=== PATIENT | male | born 1950 | race Caucasian/White ===

== ENCOUNTER 2016-10-11 08:09 | Inpatient (IN) | payer OTHER, MEDICAID ==
[~2016-10-11] VITALS: Ht 172.7 cm; Wt 110.2 kg
[2016-10-11] VITALS (24 sets, daily range): BP systolic 104–196; BP diastolic 53–126; PULSE 78–138; RESP 21–34; TEMP 97–100.3; O2SAT 85–99
--- NOTE | 2016-10-11 08:09 | NUR ---
Patient brought in by ALS from [facility] for shortness of breath since last night that has been getting worse. Patient was 81% upon EMS arrival and given nitro x 3 SL in field which helped a little bit per patient. Patient arrived in CPAP, tachypneic, diaphoretic, with accessory muscle use. placed on turpentine distiller, side rails up.
--- NOTE | 2016-10-11 08:09 | NUR ---
Patient to ER bed 2 to gown for evaluation. Side rails up. Report given to FELIPE ROSS.
--- NOTE | 2016-10-11 08:09 | NUR ---
ER at bedside examining patient.
[2016-10-11] MEDS ORDERED: NITROGLYCERIN 250 ML IV ONE ×2 (08:15→08:22)
--- NOTE | 2016-10-11 08:20 | NUR ---
# 20 gauge angiocath placed to L HAND. Use of asceptic technique. Opsite placed over site. Blood return noted. Blood for lab drawn from site. Flushed with 10 cc of normal saline. No evidence of infiltration noted. Patient tolerated well.
[2016-10-11 08:37] LABS: BASOPHILS # (AUTO) 0.3 K/uL (0.0-0.2); BASOPHILS % (AUTO) 1.5 % (0.0-2.0); EOSINOPHILS # (AUTO) 0.1 K/uL (0.0-0.4); EOSINOPHILS % (AUTO) 0.7 % (0.0-4.0); HEMATOCRIT 48.9 % (36-54); HEMOGLOBIN 15.4 g/dL (14.0-18.0); LYMPHOCYTES # (AUTO) 2.2 K/uL (1.0-5.5); LYMPHOCYTES % (AUTO) 10.6 % (20.5-51.5); MEAN CORPUSCULAR HEMOGLOBIN 27 pg (27-31); MEAN CORPUSCULAR HGB CONC 31 % (32-36); MEAN CORPUSCULAR VOLUME 86 fL (79.0-98.0); MONOCYTES # (AUTO) 0.5 K/uL (0.0-1.0); MONOCYTES % (AUTO) 2.4 % (1.7-9.3); NEUTROPHILS # (AUTO) 17.5 K/uL (1.8-7.7); PLATELET COUNT (AUTO) 236 K/uL (130-430); RED BLOOD CELL COUNT(AUTO) 5.65 MIL/uL (4.2-6.2); RED CELL DISTRIBUTION WIDTH 15.1 % (9.0-15.0); WHITE BLOOD COUNT (AUTO) 20.6 K/uL (4.8-10.8)
[2016-10-11 08:49] LABS: PROTHROMBIN TIME 10.6 SECS (9.5-12.5)
[2016-10-11] MEDS ORDERED: NS 250 ML IV ONE (09:00)
[2016-10-11] MEDS ORDERED: PIPERACILLIN/TAZO 3.375 GM in NS 50 ML IV ONE (09:00)
[2016-10-11 09:11] LABS: CALCIUM 8.7 mg/dL (8.4-11.0); CREATININE 0.81 mg/dL (0.55-1.30); POTASSIUM 3.8 mmol/L (3.5-5.1)
--- NOTE | 2016-10-11 09:15 | NUR ---
# 16 FR Lai catheter with use of sterile technique. Immediate return of cc urine noted. Bedside drainage bag placed below level of bladder. Urine sample collected and sent to lab. Pt tolerated procedure .
[2016-10-11 09:16] LABS: ALBUMIN 3.8 g/dL (3.4-4.8); TOTAL BILIRUBIN 0.9 mg/dL (0.0-1.0); TOTAL PROTEIN, SERUM 7.2 g/dL (6.4-8.3)
[2016-10-11] MEDS ORDERED: PIPERACILLIN/TAZOBACTAM 3.375 GM/VIAL (ZOSYN) IV ONE (09:26)
[2016-10-11 09:28] LABS: BILIRUBIN,URINE NEGATIVE (NEGATIVE); BLOOD, URINE 1+ (NEGATIVE); CLARITY/URINE CLEAR (CLEAR); COLOR,URINE YELLOW (YELLOW); GLUCOSE,URINE 1+ (NEGATIVE); KETONES,URINE 1+ (NEGATIVE); LEUKOCYTE ESTERASE ,URINE NEGATIVE (NEGATIVE); NITRITE, URINE NEGATIVE (NEGATIVE); PH,URINE 5.5 (5.0-8.0); PROTEIN URINE 2+ (NEGATIVE); UROBILINOGEN,URINE 0.2 (0.2-1.0)
[2016-10-11] MEDS ORDERED: NA P118E RC (09:37)
[2016-10-11] MEDS ORDERED: ASPI-1063 PO (09:37)
[2016-10-11] MEDS ORDERED: HYDR-1115 PO (09:37)
[2016-10-11] MEDS ORDERED: DULR10 RC (09:37)
[2016-10-11] MEDS ORDERED: DONE10TA44 PO (09:37)
[2016-10-11] MEDS ORDERED: GLU500 PO (09:37)
[2016-10-11] MEDS ORDERED: DOCU-144 PO (09:37)
[2016-10-11] MEDS ORDERED: IPRA0.2S6 INH (09:37)
[2016-10-11] MEDS ORDERED: MAGN400T10 PO (09:37)
[2016-10-11] MEDS ORDERED: GLIP5TAB76 PO (09:37)
[2016-10-11] MEDS ORDERED: CLOP75TA2 PO (09:37)
[2016-10-11] MEDS ORDERED: METO25TA6 PO (09:37)
[2016-10-11] MEDS ORDERED: LIP10 PO (09:37)
[2016-10-11] MEDS ORDERED: LISI-600 PO (09:37)
[2016-10-11 09:40] LABS: BACTERIA,URINE FEW /HPF (None Seen); MUCUS,URINE None Seen /LPF (None Seen)
[2016-10-11] MEDS ORDERED: MULT PO (09:42)
[2016-10-11] MEDS ORDERED: LEVA1.25 NEB (09:42)
[2016-10-11] MEDS ORDERED: PRO20 PO (09:42)
[2016-10-11] MEDS ORDERED: PRO40 PO (09:42)
[2016-10-11] MEDS ORDERED: MAGN400O4 PO (09:42)
[2016-10-11] MEDS ORDERED: ASCO500T20 PO (09:42)
[2016-10-11] MEDS ORDERED: HYDR-1189 PO (09:42)
[2016-10-11] MEDS ORDERED: ACET325T53 PO (09:42)
[2016-10-11] MEDS ORDERED: TUM500 PO (09:42)
--- NOTE | 2016-10-11 09:42 | NUR ---
Medication reconciliation completed with information provided by [facility]. Any prior medication reconciliation on file was reviewed and corrected.
--- NOTE | 2016-10-11 10:00 | NUR ---
RN NOTE: ADMISSION Patient transferred from [facility] ED via gurney accompanied by ED nurse and RT staff.Patient awake and alert x 3, easily irritable upon approach,follows simple commands.He has left side weakness to upper and lower extremities.Patient breathing labored, bipap at 60%, crackles through out noted.Patient presents slight non-pitting edema to bilateral lower extremities.Patient draining clear, yellow urine to Lai.Patient oriented to unit and staff,verified patient belongings and verbally consented hospital paperwork.Bed locked,in lowest position,call light within easy reach,upper side rails x 2 up.Pt continues to be monitored closely.
--- NOTE | 2016-10-11 10:10 | NUR ---
Patient will be admitted to care of DR AU. Admitted to unit. Will go to room . Belongings list completed. Summary report printed. Report given to .
[2016-10-11 10:13] LABS: ABG TOTAL HEMOGLOBIN 15.6 G/dL (12.0-18.0); BLOOD GAS BASE EXCESS -0.6 mmol/L (-3.0-3.0); BLOOD GAS COHb% 0.7 % (0.5-1.5); BLOOD GAS HHB 2.9 % (0.0-6.0); BLOOD GAS PH 7.407 (7.350-7.450); BLOOD O2Hb% 96.3 % (94.0-97.0)
[2016-10-11] MEDS ORDERED: IPRATROPIUM BROM 0.5 MG/2.5 ML VIAL.NEB (ATROVENT) INH PRN (10:15)
[2016-10-11] MEDS ORDERED: ALBUTEROL SULFATE 0.083% 2.5 MG/3 ML VIAL.NEB INH PRN (10:15)
[2016-10-11] MEDS ORDERED: methylPREDNISolone SOD SUCC/PF 62.5 MG/ML VIAL IVP ONE (10:15)
--- NOTE | 2016-10-11 10:30 | NUR ---
MD COMMUNICATION: Dr. AU Received new orders from ,updated on patient condition.Orders carried out.Pt continues to be monitored closely.
[2016-10-11] MEDS ORDERED: ACETAMINOPHEN 325 MG TABLET PO PRN (11:00)
[2016-10-11] MEDS ORDERED: BISACODYL 10 MG/SUPPOSITORY RC PRN (11:00)
[2016-10-11] MEDS ORDERED: HYDROcodone/ACETAMIN 5-325 MG TAB (NORCO/ VICODIN) PO PRN (11:00)
--- NOTE | 2016-10-11 11:00 | NUR ---
COMMUNICATION: Dr. ANGELY Marina communicated D/C IVF per patient not hemodynamically stable at this time.Continue to follow plan of care.
[2016-10-11] MEDS ORDERED: NACL 0.9% 1,000 ML IV SCH (11:30)
[2016-10-11 11:38] LABS: NEUTROPHILS % (AUTO) 84.8 % (40.0-70.0)
[2016-10-11] MEDS ORDERED: FUROSEMIDE 20 MG/2 ML VIAL IVP ONE ×2 (12:00→17:00)
--- NOTE | 2016-10-11 12:00 | NUR ---
PT CARE: Bm x 1, cleaned.CHG bath, oral care provided.Linen changed.Patient turned,repositioned.Patient currently tolerating vent settings, o2sat 96%.Will continue to monitor patient closely.
--- NOTE | 2016-10-11 12:45 | NUR ---
MD VISIT: DR. AU PATIENT WAS SEEN AND EXAMINED BY DR. AU, WITH ORDERS CARRIED OUT. BIPAP OFF AT THIS TIME, PT PLACED ON 3L O2 VIA OXYMIZER, HEAD OF THE BED UP FOR COMFORT. ICE CHIPS AND SIPS OF WATER GIVEN. REQUEST FOR SWALLOW EVAL. DONE.
--- NOTE | 2016-10-11 12:55 | NUR ---
Jasmyne from Speech Therapy called for swallow evaluation.
[2016-10-11] MEDS ORDERED: LORazepam 2 MG/ML VIAL IVP ONE (13:00)
--- NOTE | 2016-10-11 13:07 | NUR ---
Consult for Dr. Lucia lester. spoke to Belia from exchange.
[2016-10-11] MEDS: PANTOPRAZOLE SODIUM 40 MG TAB PO SCH (13:08)
[2016-10-11] MEDS: hydrALAZINE HCL 25 MG TABLET PO SCH ×3 (13:08→20:43)
[2016-10-11] MEDS ORDERED: PANTOPRAZOLE SODIUM 40 MG TAB ONE (13:13)
[2016-10-11] MEDS: IPRATROPIUM BROM 0.5 MG/2.5 ML VIAL.NEB (ATROVENT) INH SCH ×2 (13:14→20:08)
[2016-10-11] MEDS: ALBUTEROL SULFATE 0.083% 2.5 MG/3 ML VIAL.NEB INH SCH ×2 (13:14→20:08)
--- NOTE | 2016-10-11 13:30 | NUR ---
RT NOTES Despite HHN tx, pt's respiratory effort still appears labored, pt is diaphoretic and audible wheezing continues as well, Dr Rea made aware, including current BIPAP settings. Pt's breathing effort appears more "relaxed and even" on BIPAP. Will cont to monitor pt.
--- NOTE | 2016-10-11 13:35 | NUR ---
RT NOTES Dr Rea was made aware of duplicate ABG order was cancelled this a.m. FIO2 titrated to 50% per Dr Rea's order to keep sat. >92%
--- NOTE | 2016-10-11 14:00 | NUR ---
MD ROUNDING: DR. FAWAD MCLEOD at bedside.Updated on patient condition.New orders carried out.Pt continues to be monitored closely.
--- NOTE | 2016-10-11 14:21 | NUR ---
S.T. SWALLOW EVAL COMPLETED. PT WAS CHANGED FROM BIPAP TO OXYMIZER BY NRSG STAFF. 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 TRIALS. LABORED BREATHING W/ SWALLOWING. PT IS AT RISK FOR ASPIRATION. REC: NPO - ALTERNATIVE METHOD FOR FEEDING. VIDEO SWALLOW TO R/O ASPIRATION. CONSULTED W/ NURSING. CONCUR BEST TO DO VIDEO SWALLOW WHEN PT'S RESPIRATORY STATUS IMPROVES. NURSES TOD AND WILLIAM NOTIFIED. G8996 CM G8997 CM G8998 CM NOMS LEVEL 2
[2016-10-11] MEDS: methylPREDNISolone SOD SUCC/PF 62.5 MG/ML VIAL IVP SCH ×2 (14:42→22:09)
[2016-10-11] MEDS: PIPERACILLIN/TAZO 3.375/DEX-IS 50 ML IV SCH ×2 (15:01→17:29)
--- NOTE | 2016-10-11 16:20 | NUR ---
MD ROUNDING: Dr. Clif MCLEOD at bedside, updated on patient condition.Pt continues to be monitored closely.
[2016-10-11] MEDS: INSULIN ASPART 100 UNITS/ML, 10 ML VIAL (NovoLOG) SUBCUT PRN ×2 (17:43→20:42)
--- NOTE | 2016-10-11 18:00 | NUR ---
PT UPDATE: Pt observed resting in bed, eye closed, regular positive chest rise and fall noted.Bed locked, in lowest position,HOB elevated,upper rails x 2 up, SCDs in place,call light within easy reach.Pt continues to be monitored closely.
[2016-10-11] MEDS: AZITHROMYCIN 500 MG in NS 250 ML IV SCH (18:28)
--- NOTE | 2016-10-11 19:20 | NUR ---
CLOSING NOTE: Plan of care and report endorsed to VANDANA Reece via SBAR method.
--- NOTE | 2016-10-11 19:20 | NUR ---
Beginning of shift assessment Pt lying in bed resting w eyes closed, easily arousable to verbal/tactile stimulation. Able to make needs known, able to follow commands. Pt unable to move L side due to previous CVA. real estate professional show SR with 1 degree AVB. Pt on Bipap, tolerating well. Respirations even and unlabored, SPO2 >92%. Free from s/s of respiratory distress. 20 g to L hand, SL. IV patent, no s/s of infiltration or infection. Lai catheter draining dark yellow urine to gravity, placed below bladder level. Call light within reach, bed in low position for safety, will continue to monitor.
[2016-10-11] MEDS: METOPROLOL TARTRATE 25 MG TABLET PO SCH (20:43)
[2016-10-11] MEDS: DONEPEZIL HCL 5 MG TABLET (ARICEPT) PO SCH (20:43)
[2016-10-11] MEDS: DOCUSATE SODIUM 100 MG CAPSULE PO SCH (20:44)
[2016-10-11] MEDS: ATORVASTATIN 10 MG TABLET PO SCH (20:44)
--- NOTE | 2016-10-11 20:57 | NUR ---
PO medications PO medications held due to pt NPO (aspiration risk), which include BP meds. BP currently decreased, 98/57. HR 78. Will continue to monitor. Addendum: 10/12/16 at 0310 by Ce Mane RN Pt current diet ordered is Clear liquids; however, ST recommends NPO due to aspiration risk. When pt asked if he could tolerate swallowing medications, pt reports throat is sore and that he will not be able to swallow pills. Refusing to have pills crushed when offered.
--- NOTE | 2016-10-11 22:30 | NUR ---
IV infiltrated IV to L hand infiltrated. IV removed, catheter intact. No active bleeding noted. 20 gauge angiocath placed to R AC. Use of asceptic technique. Opsite placed over site. Blood return noted. Flushed with 10 cc of normal saline. No evidence of infiltration noted. Patient tolerated well.
[2016-10-12] VITALS (26 sets, daily range): BP systolic 112–190; BP diastolic 61–115; PULSE 72–104; RESP 16–25; TEMP 98.1–98.8; O2SAT 91–98; Ht 172.7 cm; Wt 110.2 kg
[2016-10-12] MEDS: PIPERACILLIN/TAZO 3.375/DEX-IS 50 ML IV SCH ×5 (00:06→23:45)
--- NOTE | 2016-10-12 03:03 | NUR ---
Rounds No acute changes in condition noted at this time. Pt tolerating Bipap settings well, respirations even and unlabored. SPO2 >92%. Will continue to monitor.
--- NOTE | 2016-10-12 05:15 | NUR ---
BM Pt had x1 soft, light brown, medium stool. Perineal care and linen change provided. Pt tolerated well, no c/o pain. No s/s of respiratory distress. Will continue to monitor.
--- NOTE | 2016-10-12 05:27 | NUR ---
RT bedside Pt requesting to take Bipap off. Stating it is causing discomfort and "wants a break." RT bedside switching from Bipap to oxymizer @ 4 lm. Will continue to monitor pt tolerance.
--- NOTE | 2016-10-12 05:54 | NUR ---
Pt had another med stool x1 Addendum: 10/12/16 at 0556 by Ce Mane RN Perineal care and linen change provided. Pt tolerated well. Pt continues on oxymizer and tolerating well. SPO2 >92%. Respirations even and unlabored. Will continue to monitor
[2016-10-12] MEDS: methylPREDNISolone SOD SUCC/PF 62.5 MG/ML VIAL IVP SCH ×3 (06:22→21:51)
[2016-10-12 06:54] LABS: ALBUMIN 3.1 g/dL (3.4-4.8); CALCIUM 8.5 mg/dL (8.4-11.0); CREATININE 0.93 mg/dL (0.55-1.30); POTASSIUM 3.4 mmol/L (3.5-5.1); TOTAL BILIRUBIN 0.5 mg/dL (0.0-1.0); TOTAL PROTEIN, SERUM 6.5 g/dL (6.4-8.3)
--- NOTE | 2016-10-12 06:56 | NUR ---
Blood glucose/Dr Roman paged Pt blood glucose 159. Dr Roman pagegreer for clarification of sliding scale. No orders in place for insulin coverage for blood sugar of 151-159. Will carry out any new orders.
[2016-10-12 07:01] LABS: BASOPHILS % (AUTO) 0.2 % (0.0-2.0); HEMATOCRIT 42.7 % (36-54); HEMOGLOBIN 13.8 g/dL (14.0-18.0); LYMPHOCYTES # (AUTO) 1.1 K/uL (1.0-5.5); LYMPHOCYTES % (AUTO) 8.7 % (20.5-51.5); MEAN CORPUSCULAR HEMOGLOBIN 28 pg (27-31); MEAN CORPUSCULAR HGB CONC 32 % (32-36); MEAN CORPUSCULAR VOLUME 86 fL (79.0-98.0); NEUTROPHILS # (AUTO) 10.6 K/uL (1.8-7.7); NEUTROPHILS % (AUTO) 83.1 % (40.0-70.0); PLATELET COUNT (AUTO) 205 K/uL (130-430); RED BLOOD CELL COUNT(AUTO) 4.95 MIL/uL (4.2-6.2); RED CELL DISTRIBUTION WIDTH 15.1 % (9.0-15.0); WHITE BLOOD COUNT (AUTO) 12.7 K/uL (4.8-10.8)
--- NOTE | 2016-10-12 07:02 | NUR ---
Dr Roman Received call back from Dr Roman. Updated MD on pt blood sugar and current sliding scale order. reports to hold insulin coverage until blood glucose is 160 and above. MD also updated on ST jama MD reports to keep pt NPO at this time.
--- NOTE | 2016-10-12 07:09 | NUR ---
End of shift report Endorsed care and pt report to VANDANA Torres.
[2016-10-12] MEDS: ALBUTEROL SULFATE 0.083% 2.5 MG/3 ML VIAL.NEB INH SCH ×3 (07:27→20:36)
[2016-10-12] MEDS: IPRATROPIUM BROM 0.5 MG/2.5 ML VIAL.NEB (ATROVENT) INH SCH ×3 (07:27→20:36)
--- NOTE | 2016-10-12 07:29 | NUR ---
Nutrition Update Nelson Scale 15 noted. Pt admitted for acute respiratory failure/pneumonia. Diet: clear liquid, no red BMI: 36.9 kg/m2 RD to follow per nutrition care standards.
--- NOTE | 2016-10-12 07:30 | NUR ---
RECEIVED PT ALERT AND COOPERATIVE. TELLING JOKES. NO DISTRESS ON OXIMISER AT 4L. SATS 94%. LUNGS WITH WHEEZING BILATERALLY. BREATHING TREATMENT IN PROGRESS. HOB UP. SR ON MONITOR WITH PERIODS OF FIRST DEGREE BLOCK. NAJERA CATH WITH ADRIANO URINE IN BAG. WILL MONITOR OUTPUT. 20G IV TO RIGHT AC INFUSING FLUIDS AT KVO. 22G STARTED TO RIGHT FOREARM AND SALINE LOCKED. SCD'S IN USE. PT REMAINS NPO PENDING SWALLOW EVAL.
[2016-10-12 07:52] LABS: ABG TOTAL HEMOGLOBIN 15.1 G/dL (12.0-18.0); BLOOD GAS BASE EXCESS 2.8 mmol/L (-3.0-3.0); BLOOD GAS COHb% 0.3 % (0.5-1.5); BLOOD GAS HHB 4.8 % (0.0-6.0); BLOOD GAS PH 7.421 (7.350-7.450); BLOOD O2Hb% 94.7 % (94.0-97.0)
[2016-10-12] MEDS ORDERED: KCL 20 mEq in 100 mL (PREMIX) 100 ML IV ONE (08:45)
[2016-10-12] MEDS: FUROSEMIDE 20 MG/2 ML VIAL IVP SCH ×2 (09:00→09:16)
[2016-10-12] MEDS: PANTOPRAZOLE SODIUM 40 MG TAB PO SCH (09:00)
[2016-10-12] MEDS: CLOPIDOGREL BISULFATE 75 MG TABLET PO SCH (09:00)
[2016-10-12] MEDS: hydrALAZINE HCL 25 MG TABLET PO SCH ×4 (09:00→21:00)
[2016-10-12] MEDS: FLUoxetine HCL 20 MG CAPSULE (PROzac) PO SCH (09:00)
[2016-10-12] MEDS: DOCUSATE SODIUM 100 MG CAPSULE PO SCH ×2 (09:00→21:00)
[2016-10-12] MEDS: LACTOBACILLUS RHAMNOSUS GG 1 CAP CAPSULE PO SCH ×2 (09:00→20:18)
[2016-10-12] MEDS: METOPROLOL TARTRATE 25 MG TABLET PO SCH ×2 (09:00→21:00)
--- NOTE | 2016-10-12 09:36 | NUR ---
CHG BATH DONE. PT TALKATIVE AND DOING WELL ON 02 OXIMISER. 02 SATS 93%. WILL CONTINUE TO MONITOR ON OXIMISER.
[2016-10-12] MEDS: INSULIN ASPART 100 UNITS/ML, 10 ML VIAL (NovoLOG) SUBCUT PRN ×3 (11:51→20:42)
--- NOTE | 2016-10-12 13:10 | NUR ---
PT HAD A LARGE SOFT BROWN BM. DOUG CARE DONE. REPOSITIONED IN BED WITH PILLOW SUPPORT.
[2016-10-12] MEDS: MORPHINE 2 MG/ML INJ. SYRINGE IVP PRN ×2 (13:27→20:18)
--- NOTE | 2016-10-12 13:27 | NUR ---
PT MEDICATED WITH MORPHINE FOR PAIN.
--- NOTE | 2016-10-12 13:41 | NUR ---
PAGED DR AU FOR ELEVATED BP. DR KUHN CALLED BACK AND STATED SHE WILL BE HERE IN A FEW MINUTES.
--- NOTE | 2016-10-12 13:55 | NUR ---
DR AU IN TO SEE PT. ORDERS LEFT.
[2016-10-12] MEDS ORDERED: ACETAMINOPHEN 650 MG SUPP.RECT RC PRN (14:00)
[2016-10-12] MEDS: ENALAPRILAT DIHYDRATE 1.25 MG/ML VIAL IVP PRN ×2 (14:36→19:07)
--- NOTE | 2016-10-12 15:45 | NUR ---
SWALLOW EVAL DONE AT BEDSIDE. PT PASSED AND CAN HAVE THINK LIQUIDS TO DRINK AND FINE CHOPPED BLAND DIET. ORDER ENTERED.
[2016-10-12] MEDS: AZITHROMYCIN 500 MG in NS 250 ML IV SCH (16:30)
--- NOTE | 2016-10-12 19:05 | NUR ---
BP ELEVATED AFTER PT ATE DINNER. MEDICATED WITH PO BP MEDS./ LOPRESSOR HELD DUE TO SIDE EFFECT OF AV BLOCK AND PT HAS A FIRST DEGREE AV BLOCK ALL DAY. PT TOLERATED DIET WITHOUT PROBLEMS. TAKING LIQUIDS AND C./O BEING THIRSTY. REPORT GIVEN TO ONCOMING SHIFT.
[2016-10-12] MEDS: ASPIRIN 81 MG TABLET(ECOTRIN) PO SCH (19:36)
[2016-10-12] MEDS: LISINOPRIL 20 MG TABLET PO SCH (19:38)
--- NOTE | 2016-10-12 20:00 | NUR ---
PM ASSESSMENT PT IN BED WATCHING TV. PT ALERT AND ORIENTED TO PERSON PLACE AND EVENT. PT CALM AND COOPERATIVE. NO SIGNS OF DISTRESS AT THIS TIME. SINUS RHYTHM ON DOCUMENT IMPROVEMENT SPECIALIST. PT ON OXYMIZER 4L. O2 SAT 94%. BREATHING NORMAL AND UNLABORED. PERIPHERAL IV 20G TO RIGHT AC SALINE LOCK DRESSING CLEAN DRY AND INTACT. PERIPHERAL IV 22G TO RIGHT HAND SALINE LOCK DRESSING CLEAN DRY AND INTACT. BOTH SITES HAVE NO SIGNS OF INFECTION OR INFILTRATION. NAJERA CATHETER IN PLACE INTACT. CONTACT ISOLATION MAINTAINED. CALL LIGHT WITHIN REACH. BED AT LOWEST POSITION. CONTINUE TO MONITOR.
[2016-10-12] MEDS: MUPIROCIN NASAL 2% OINT. 1 GM NS SCH ×2 (20:15→21:00)
[2016-10-12] MEDS: ATORVASTATIN 10 MG TABLET PO SCH (20:18)
[2016-10-12] MEDS: DONEPEZIL HCL 5 MG TABLET (ARICEPT) PO SCH (20:18)
--- NOTE | 2016-10-12 21:00 | NUR ---
HELD APRESOLINE DUE TO BORIS, RN ALREADY ADMINISTERED ONE DOSE @ 1930. HELD LOPRESSOR DUE TO PT HAS 1ST DEGREE AV BLOCK. DR AU AWARE
--- NOTE | 2016-10-12 21:25 | NUR ---
HIGH BLOOD PRESSURE PT'S BP 182/94. NOTIFIED DR AU OF PT'S HIGH BLOOD PRESSURE. NEW ORDERS RECEIVED.
[2016-10-12] MEDS ORDERED: LISINOPRIL 20 MG TABLET PO ONE (21:30)
[2016-10-12] MEDS ORDERED: cloNIDine HCL 0.1 MG TABLET PO PRN (21:30)
[2016-10-12 23:34] LABS: BILIRUBIN,URINE NEGATIVE (NEGATIVE); BLOOD, URINE 3+ (NEGATIVE); CLARITY/URINE SL CLOUDY (CLEAR); COLOR,URINE YELLOW (YELLOW); GLUCOSE,URINE 2+ (NEGATIVE); KETONES,URINE NEGATIVE (NEGATIVE); LEUKOCYTE ESTERASE ,URINE NEGATIVE (NEGATIVE); NITRITE, URINE NEGATIVE (NEGATIVE); PH,URINE 5.5 (5.0-8.0); PROTEIN URINE 2+ (NEGATIVE); UROBILINOGEN,URINE 0.2 (0.2-1.0)
[2016-10-12 23:48] LABS: BACTERIA,URINE MODERATE /HPF (None Seen); RBC,URINE >100 /HPF (0-3)
[2016-10-12 23:49] LABS: MUCUS,URINE 1+ /LPF (None Seen); URIC ACID CRYSTALS,URINE 0-10 /HPF (None Seen)
[2016-10-13] VITALS (16 sets, daily range): BP systolic 116–158; BP diastolic 58–94; PULSE 68–96; RESP 15–25; TEMP 97.6–99; O2SAT 66–98
[2016-10-13] MEDS: IPRATROPIUM BROM 0.5 MG/2.5 ML VIAL.NEB (ATROVENT) INH SCH ×4 (02:11→21:04)
[2016-10-13] MEDS: ALBUTEROL SULFATE 0.083% 2.5 MG/3 ML VIAL.NEB INH SCH ×4 (02:11→21:03)
[2016-10-13] MEDS: PIPERACILLIN/TAZO 3.375/DEX-IS 50 ML IV SCH ×3 (06:01→17:54)
[2016-10-13] MEDS: methylPREDNISolone SOD SUCC/PF 62.5 MG/ML VIAL IVP SCH ×3 (06:01→22:34)
[2016-10-13] MEDS: MORPHINE 2 MG/ML INJ. SYRINGE IVP PRN ×4 (06:02→22:34)
[2016-10-13] MEDS: INSULIN ASPART 100 UNITS/ML, 10 ML VIAL (NovoLOG) SUBCUT PRN ×4 (06:12→22:37)
[2016-10-13 07:20] LABS: BASOPHILS % (AUTO) 0.1 % (0.0-2.0); EOSINOPHILS % (AUTO) 0.1 % (0.0-4.0); HEMATOCRIT 41.5 % (36-54); HEMOGLOBIN 13.9 g/dL (14.0-18.0); LYMPHOCYTES # (AUTO) 1.1 K/uL (1.0-5.5); LYMPHOCYTES % (AUTO) 9.6 % (20.5-51.5); MEAN CORPUSCULAR HEMOGLOBIN 29 pg (27-31); MEAN CORPUSCULAR HGB CONC 33 % (32-36); MEAN CORPUSCULAR VOLUME 87 fL (79.0-98.0); MONOCYTES # (AUTO) 0.4 K/uL (0.0-1.0); MONOCYTES % (AUTO) 3.2 % (1.7-9.3); NEUTROPHILS # (AUTO) 10.2 K/uL (1.8-7.7); PLATELET COUNT (AUTO) 202 K/uL (130-430); RED BLOOD CELL COUNT(AUTO) 4.79 MIL/uL (4.2-6.2); RED CELL DISTRIBUTION WIDTH 15.3 % (9.0-15.0); WHITE BLOOD COUNT (AUTO) 11.7 K/uL (4.8-10.8)
[2016-10-13 07:25] LABS: ALBUMIN 3.1 g/dL (3.4-4.8); CALCIUM 8.6 mg/dL (8.4-11.0); CREATININE 0.98 mg/dL (0.55-1.30); POTASSIUM 3.9 mmol/L (3.5-5.1); TOTAL BILIRUBIN 0.5 mg/dL (0.0-1.0); TOTAL PROTEIN, SERUM 6.5 g/dL (6.4-8.3)
--- NOTE | 2016-10-13 07:27 | NUR ---
GAVE REPORT TO ONCOMING NURSE
--- NOTE | 2016-10-13 07:30 | NUR ---
BEGINNING OF SHIFT ASSESSMENT: Received patient awake and alert x 3,sitting upright in bed watching TV,able to make his needs known and cooperative.Pt tolerating oxymizer 4L, crackles and wheezing noted.Patient has IV to right AC # 20 and IV to right hand #22,all ports flushable with blood return,ports patent,dressing dry,clean,intact,no signs of redness and infection noted.Yellow,clear urine draining to gravity,turner cath in place.Contact iso precautions in place.Bed locked,in lowest position,call light within easy reach,upper side rails x 2 up.Pt continues to be closely monitored.
[2016-10-13] MEDS: FLUoxetine HCL 20 MG CAPSULE (PROzac) PO SCH (08:41)
[2016-10-13] MEDS: ASPIRIN 81 MG TABLET(ECOTRIN) PO SCH (08:41)
[2016-10-13] MEDS: PANTOPRAZOLE SODIUM 40 MG TAB PO SCH (08:41)
[2016-10-13] MEDS: DOCUSATE SODIUM 100 MG CAPSULE PO SCH ×2 (08:41→22:32)
[2016-10-13] MEDS: CLOPIDOGREL BISULFATE 75 MG TABLET PO SCH (08:42)
[2016-10-13] MEDS: LISINOPRIL 20 MG TABLET PO SCH (08:42)
[2016-10-13] MEDS: LACTOBACILLUS RHAMNOSUS GG 1 CAP CAPSULE PO SCH ×2 (08:42→22:32)
[2016-10-13] MEDS: hydrALAZINE HCL 25 MG TABLET PO SCH ×4 (08:43→22:33)
[2016-10-13] MEDS: METOPROLOL TARTRATE 25 MG TABLET PO SCH ×2 (09:19→22:32)
--- NOTE | 2016-10-13 10:00 | NUR ---
PT CARE: Patient turned, repositioned, oral care, and CHG bath provided.Patient continues to be observed sitting upright in bed watching TV.Pt tolerating oxymizer at 4L.Pt continues to be monitored closely.
--- NOTE | 2016-10-13 12:00 | NUR ---
GLUCOSE: Blood sugar 291 mg/dl, 6 units of novalog given per sliding scale protocol.Patient provided emotional support and educated on treatment modalities and discharge goals.Patient verbalized understanding.Client assisted with lunch.Bed locked,in lowest position, call light within easy reach, HOB elevated, upper side rails x 2 up.Pt continues to be monitored closely.
--- NOTE | 2016-10-13 13:40 | NUR ---
MD ROUNDING: Dr. ANGELY MCLEOD at bedside, updated on pt condition.Received new orders.Patient continues to be monitored closely.
--- NOTE | 2016-10-13 14:00 | NUR ---
TURNER DISCONTINUED: Patient awake, provide pt education on removal of turner.Turner balloon deflated, aspirated 10cc of fluid from turner balloon.Pt tolerated TURNER DC.Informed patient to use urinal and call light regarding needs and concerns.Patient verbalized understanding.
--- NOTE | 2016-10-13 14:30 | NUR ---
TRANSFER OF CARE: MST Report and plan of care given to VANDANA Meneses via SBAR method.Pt sitting upright in bed watching TV, no signs of distress, tolerating oxymizer at 4L, o2sat 98%.Bed locked,in lowest position,call light within easy reach, HOB elevated, upper side rails x 2 up.
--- NOTE | 2016-10-13 14:40 | NUR ---
PT TRANSFERRED: [facility] 112 A Patient transferred via bed, on portable tele monitor, 1st degree HB on monitor, O2sat 98%, no signs of distress, to room 112-A. Pt received by VANDANA Graf.Report given at bedside.Endorsed all care to VANDANA Graf.
--- NOTE | 2016-10-13 14:45 | NUR ---
RN INITIAL NOTE PT TRANSFERRED FROM ICU, REPORT RECEIVED BY VANDANA THOMAS. PT IN GOOD SPIRITS AND VITAL SIGNS WITHIN NORMAL RANGE. SPO2 IS STEADY AT 93% ON 4L OXIMIZER. . CONTACT PRECAUTION INITIATED DUE TO POSITIVE MRSA OF THE NARES. BED IN LOWEST POSITION, BED ALARM ARMS, AND CALL LIGHT WITHIN REACH. PT FRIEND, MICHELINE, IS AT BEDSIDE
--- NOTE | 2016-10-13 16:12 | NUR ---
RN ROUNDS PT IS SITTING UP IN BED AND IS COMPLAINING OF PAIN 9/10, BUT HE IS NOT DUE FOR MORPHINE FOR ANOTHER HOUR. REPOSITIONED PT FOR COMFORT.
[2016-10-13] MEDS: AZITHROMYCIN 500 MG in NS 250 ML IV SCH (18:25)
--- NOTE | 2016-10-13 19:00 | NUR ---
CLOSING ROUNDS PT SITTING UP IN BED. I ASKED HIM ABOUT HIS RIGHT HAND TREMBLE, WHICH WASN'T PRESENT UPON ADMISSION, AND HE SAID "IT HAS DONE THAT SINCE MY STROKE, AND IT GETS WORSE AT NIGHT." BED IN LOWEST POSITION AND CALL LIGHT WITHIN REACH
--- NOTE | 2016-10-13 21:35 | NUR ---
Patient awake alert HOB elevated on OXIMIZER 4 LPM chest movement shallow also symmetrical comfort measures implemented & helpful / .
[2016-10-13] MEDS: MUPIROCIN 2% TOPICAL OINTMENT 22 GM TP SCH (22:31)
[2016-10-13] MEDS: ATORVASTATIN 10 MG TABLET PO SCH (22:32)
[2016-10-13] MEDS: DONEPEZIL HCL 5 MG TABLET (ARICEPT) PO SCH (22:33)
[2016-10-14] VITALS (7 sets, daily range): BP systolic 124–158; BP diastolic 68–101; PULSE 61–81; RESP 17–24; TEMP 96.3–98.9; O2SAT 92–95
[2016-10-14] MEDS: PIPERACILLIN/TAZO 3.375/DEX-IS 50 ML IV SCH ×5 (00:34→23:42)
--- NOTE | 2016-10-14 00:43 | NUR ---
MORPHINE SULFATE 1 MG IVP GIVEN FOR GENERAL pain 02/04 & helpful position change tolerated .
--- NOTE | 2016-10-14 00:46 | NUR ---
ZOSYN 3.375 GM IVPB administer as ordered no adverse reaction noted / .
--- NOTE | 2016-10-14 00:48 | NUR ---
Reposition & Turning patient on schedule pillows used for off loading left sided weakness is noted / .
--- NOTE | 2016-10-14 01:26 | NUR ---
Hourly Rounding HOB elevated patient awake on 02 oximizer 4 lpm call dick with patient / .
--- NOTE | 2016-10-14 04:29 | NUR ---
Patient Refusing Bi pap machine with RT & put back on OXIMIZER @ 4 LPM Respirations regular and unlabored skin dry warm / .
[2016-10-14] MEDS: ALBUTEROL SULFATE 0.083% 2.5 MG/3 ML VIAL.NEB INH SCH ×4 (05:16→19:54)
[2016-10-14] MEDS: IPRATROPIUM BROM 0.5 MG/2.5 ML VIAL.NEB (ATROVENT) INH SCH ×4 (05:16→19:54)
[2016-10-14] MEDS: methylPREDNISolone SOD SUCC/PF 62.5 MG/ML VIAL IVP SCH ×3 (06:42→21:42)
[2016-10-14] MEDS: INSULIN ASPART 100 UNITS/ML, 10 ML VIAL (NovoLOG) SUBCUT PRN ×4 (06:44→21:59)
--- NOTE | 2016-10-14 06:55 | NUR ---
Patient did Refuse Labs this AM awake alert / .
--- NOTE | 2016-10-14 06:56 | NUR ---
BSG @ 286 mg / dl , 6 units of Novolog insulin sub q. administer as ordered , ORANGE JUICE PO GIVEN & tolerated / .
--- NOTE | 2016-10-14 07:30 | NUR ---
RN OPENING NOTE PT IS AWAKE AND RESTING IN BED AND STATED HE IS COMFORTABLE ASIDE FROM BEING WARM, SO I PULLED HIS BLANKET DOWN. PT A/O X4. BED IN LOWEST POSITION AND BED ALARM SET. CALL LIGHT WITHIN REACH
--- NOTE | 2016-10-14 09:00 | NUR ---
RN ROUNDS PT RESTING IN BED AND STATED HE IS COMFORTABLE
--- NOTE | 2016-10-14 09:28 | NUR ---
Pt agreed to have Labs drawn at this time.
[2016-10-14] MEDS: DOCUSATE SODIUM 100 MG CAPSULE PO SCH ×2 (09:43→21:48)
[2016-10-14 09:46] LABS: BASOPHILS # (AUTO) 0.1 K/uL (0.0-0.2); HEMATOCRIT 43.8 % (36-54); HEMOGLOBIN 14.4 g/dL (14.0-18.0); LYMPHOCYTES # (AUTO) 1.3 K/uL (1.0-5.5); LYMPHOCYTES % (AUTO) 10.9 % (20.5-51.5); MEAN CORPUSCULAR HEMOGLOBIN 28 pg (27-31); MEAN CORPUSCULAR HGB CONC 33 % (32-36); MEAN CORPUSCULAR VOLUME 86 fL (79.0-98.0); MONOCYTES # (AUTO) 0.4 K/uL (0.0-1.0); MONOCYTES % (AUTO) 3.5 % (1.7-9.3); NEUTROPHILS # (AUTO) 10.1 K/uL (1.8-7.7); NEUTROPHILS % (AUTO) 84.6 % (40.0-70.0); PLATELET COUNT (AUTO) 216 K/uL (130-430); RED CELL DISTRIBUTION WIDTH 15.1 % (9.0-15.0); WHITE BLOOD COUNT (AUTO) 11.9 K/uL (4.8-10.8)
[2016-10-14] MEDS: hydrALAZINE HCL 25 MG TABLET PO SCH ×4 (09:46→21:47)
[2016-10-14] MEDS: LACTOBACILLUS RHAMNOSUS GG 1 CAP CAPSULE PO SCH ×2 (09:47→21:42)
[2016-10-14] MEDS: FLUoxetine HCL 20 MG CAPSULE (PROzac) PO SCH (09:47)
[2016-10-14] MEDS: CLOPIDOGREL BISULFATE 75 MG TABLET PO SCH (09:47)
[2016-10-14] MEDS: METOPROLOL TARTRATE 25 MG TABLET PO SCH ×2 (09:48→21:48)
[2016-10-14] MEDS: PANTOPRAZOLE SODIUM 40 MG TAB PO SCH (09:48)
[2016-10-14] MEDS: ASPIRIN 81 MG TABLET(ECOTRIN) PO SCH (09:48)
[2016-10-14 09:49] LABS: CALCIUM 8.8 mg/dL (8.4-11.0); CREATININE 0.93 mg/dL (0.55-1.30); POTASSIUM 4.3 mmol/L (3.5-5.1)
[2016-10-14] MEDS: FUROSEMIDE 20 MG/2 ML VIAL IVP SCH (09:49)
[2016-10-14] MEDS: MUPIROCIN 2% TOPICAL OINTMENT 22 GM TP SCH ×2 (09:49→22:00)
[2016-10-14] MEDS: LISINOPRIL 20 MG TABLET PO SCH (09:50)
[2016-10-14] MEDS: MORPHINE 2 MG/ML INJ. SYRINGE IVP PRN ×2 (09:59→22:07)
--- NOTE | 2016-10-14 11:00 | NUR ---
RN NOTES PT IN BED WATCHING TV. NO REPORT OF PAIN, BED IN LOWEST POSITION, ALARM SET AND CALL LIGHT WITHIN REACH
--- NOTE | 2016-10-14 13:00 | NUR ---
RN NOTES PT IN BED WATCHING TV. DOES NOT REPORT ANY PAIN, BED IN LOWEST POSITION, ALARM SET AND CALL LIGHT WITHIN REACH
--- NOTE | 2016-10-14 14:34 | NUR ---
RN ROUNDS PT RESTING IN BED. BOTH IV ACCESS POINTS DO NOT APPEAR INFILTRATED BUT I COULD NOT FLUSH THE RIGHT HAND ACCESS AND FLUSHED THE RIGHT AC ACCESS WITH RESISTANCE. WILL CONTINUE TO MONITOR AND ASSESS IF A NEW ACCESS IS REQUIRED. BED IN LOWEST POSITION AND BED ALARM SET. CALL LIGHT IN PT LAP.
[2016-10-14] MEDS: AZITHROMYCIN 500 MG in NS 250 ML IV SCH (16:11)
--- NOTE | 2016-10-14 16:25 | NUR ---
RN NOTES PT IN BED WATCHING TV. REPOSITIONED FOR COMFORT. NO REPORT OF PAIN, BED IN LOWEST POSITION, ALARM SET AND CALL LIGHT WITHIN REACH
--- NOTE | 2016-10-14 18:00 | NUR ---
RN NOTES PT IN BED WATCHING TV. FRIENDS AT BEDSIDE. BED IN LOWEST POSITION, ALARM SET AND CALL LIGHT WITHIN REACH
--- NOTE | 2016-10-14 18:59 | NUR ---
RN CLOSING NOTES PT IN BED WATCHING TV. REPOSITIONED FOR COMFORT. BED IN LOWEST POSITION, ALARM SET AND CALL LIGHT WITHIN REACH
--- NOTE | 2016-10-14 19:15 | NUR ---
OPENING NOTES RECEIVED REPORT AT BEDSIDE FROM DAY SHIFT. PATIENT RESTING WATCHING TELEVISION. VISIBLE RISE AND FALL OF THE CHEST NOTED. NASAL CANULA IN PLACE AT 2L. BED IN SEMI-FOWLERS POSITION. BED IN LOWEST POSITION, BED ALARM ON, CALL LIGHT WITHIN REACH.
--- NOTE | 2016-10-14 19:30 | NUR ---
ROUNDS PATIENT RESTING. VISIBLE RISE AND FALL OF CHEST NOTED. NO SIGNS OR SYMPTOMS OF DISTRESS NOTED. BED IN LOWEST POSITION, BED ALARM ON, CALL LIGHT WITHIN REACH.
--- NOTE | 2016-10-14 21:00 | NUR ---
ROUNDS PATIENT SITTING IN SEMI-FOWLERS LISTENING TO TELEVISION. PATIENT STATES HE HAS PAIN IN HIS HIPS, 10 OUT OF 10. MEDICATED PATIENT PER STANDING ORDERS. BED IN LOWEST POSITION, BED ALARM ON, CALL LIGHT WITHIN REACH.
--- NOTE | 2016-10-14 21:35 | NUR ---
PAIN REASSESSMENT PATIENT STATES THAT HIS PAIN IS NOW A 5. BED IN LOWEST POSITION, BED ALARM ON, CALL LIGHT WITHIN REACH, ROOM BY THE NURSING STATION. WILL CONTINUE TO MONITOR FREQUENTLY.
[2016-10-14] MEDS: ATORVASTATIN 10 MG TABLET PO SCH (21:43)
[2016-10-14] MEDS: DONEPEZIL HCL 5 MG TABLET (ARICEPT) PO SCH (21:43)
[2016-10-15 00:01] VITALS: BP 135/64; PULSE 55; RESP 18; TEMP 97.2; O2SAT 96
[2016-10-15] MEDS: IPRATROPIUM BROM 0.5 MG/2.5 ML VIAL.NEB (ATROVENT) INH SCH ×4 (00:43→19:41)
[2016-10-15] MEDS: ALBUTEROL SULFATE 0.083% 2.5 MG/3 ML VIAL.NEB INH SCH ×4 (00:44→19:41)
--- NOTE | 2016-10-15 01:00 | NUR ---
BOWEL MOVEMENT PATIENT HAD A BOWEL MOVEMENT. ASKED FOR A TOWEL TO BE PUT IN BETWEEN HIS LEGS. PATIENT EDUCATED ON POSSIBLE SKIN BREAKDOWN FROM THE TOWEL BETWEEN THE LEGS. PATIENT INSISTED ON TOWEL TO CATCH HIS URINE. WILL CONTINUE TO MONITOR AND CHANGE THE TOWEL FREQUENTLY.
[2016-10-15] MEDS: MORPHINE 2 MG/ML INJ. SYRINGE IVP PRN ×3 (02:18→11:31)
--- NOTE | 2016-10-15 03:00 | NUR ---
ROUNDS PATIENT RESTING. VISIBLE RISE AND FALL OF CHEST NOTED. NO SIGNS OR SYMPTOMS OF DISTRESS NOTED. BED IN LOWEST POSITION, BED ALARM ON, CALL LIGHT WITHIN REACH. PATIENT ROOM LOCATED ACROSS FROM NURSING STATION. WILL CONTINUE TO MONITOR FREQUENTLY.
[2016-10-15 05:09] VITALS: BP 128/70; PULSE 60; RESP 18; TEMP 97.9; O2SAT 97
[2016-10-15] MEDS: PIPERACILLIN/TAZO 3.375/DEX-IS 50 ML IV SCH ×3 (06:32→17:23)
[2016-10-15] MEDS: INSULIN ASPART 100 UNITS/ML, 10 ML VIAL (NovoLOG) SUBCUT PRN ×4 (06:39→20:58)
--- NOTE | 2016-10-15 07:00 | NUR ---
CLOSING NOTES PATIENT IS RESTING IN BED. SLEEPING. VISIBLE RISE AND FALL OF CHEST. NO SIGNS OR SYMPTOMS OF DISTRESS NOTED. BED IN LOWEST POSITION, BED ALARM ON, CALL LIGHT WITHIN REACH. WILL ENDORSE TO DAY SHIFT NURSE.
[2016-10-15 07:07] LABS: CALCIUM 8.4 mg/dL (8.4-11.0); CREATININE 0.92 mg/dL (0.55-1.30); POTASSIUM 4.5 mmol/L (3.5-5.1)
--- NOTE | 2016-10-15 07:34 | NUR ---
AM ROUNDS: No s/s of distress noted. Will continue to monitor.
[2016-10-15 08:41] VITALS: BP 135/87; PULSE 59; RESP 20; TEMP 98.2; O2SAT 96
[2016-10-15] MEDS: FUROSEMIDE 20 MG/2 ML VIAL IVP SCH (08:48)
[2016-10-15] MEDS: methylPREDNISolone SOD SUCC/PF 62.5 MG/ML VIAL IVP SCH ×2 (08:48→21:01)
[2016-10-15] MEDS: DOCUSATE SODIUM 100 MG CAPSULE PO SCH ×2 (08:49→21:00)
[2016-10-15] MEDS: ASPIRIN 81 MG TABLET(ECOTRIN) PO SCH (08:49)
[2016-10-15] MEDS: CLOPIDOGREL BISULFATE 75 MG TABLET PO SCH (08:50)
[2016-10-15] MEDS: FLUoxetine HCL 20 MG CAPSULE (PROzac) PO SCH (08:50)
[2016-10-15] MEDS: LISINOPRIL 20 MG TABLET PO SCH (08:50)
[2016-10-15] MEDS: LACTOBACILLUS RHAMNOSUS GG 1 CAP CAPSULE PO SCH ×2 (08:51→20:59)
[2016-10-15] MEDS: PANTOPRAZOLE SODIUM 40 MG TAB PO SCH (08:51)
[2016-10-15] MEDS: METOPROLOL TARTRATE 25 MG TABLET PO SCH ×2 (08:51→21:00)
[2016-10-15] MEDS: MUPIROCIN 2% TOPICAL OINTMENT 22 GM TP SCH ×2 (08:52→21:03)
[2016-10-15] MEDS: hydrALAZINE HCL 25 MG TABLET PO SCH ×4 (08:53→21:01)
--- NOTE | 2016-10-15 10:09 | NUR ---
PATIENT RESTING: Patient resting quietly. No acute distress noted. Vital signs within normal range.
[2016-10-15 12:12] VITALS: BP 116/67; PULSE 51; RESP 19; TEMP 97.4; O2SAT 93
--- NOTE | 2016-10-15 12:35 | NUR ---
PATIENT RESTING: Patient resting quietly. No acute distress noted. Vital signs within normal range.
--- NOTE | 2016-10-15 14:17 | NUR ---
DISCHARGE PLANNING DC Planning order for LTAC evaluation. Faxed DC Planning order to [facility], [place] office [phone].
--- NOTE | 2016-10-15 14:51 | NUR ---
PATIENT RESTING: Patient resting quietly. No acute distress noted. Vital signs within normal range.
--- NOTE | 2016-10-15 15:12 | NUR ---
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 Sx Hx: Right hip replacement per MD notes Subjective Information Pt seen resting in bed while eating lunch earlier today. Pt reports that he has been enjoying his meal. Pt noted w/ poor dentition (missing top teeth). Pt reports tolerance to current diet texture. Per nursing notes, pt noted w/ pitting edema to bilateral lower extremities. Per RN, pt has been requesting a variety of foods that are not available, but has otherwise been tolerating diet well w/ no s/s of chewing/swallowing difficulty. D/C planning for LTAC eval ([facility]) per MD orders. Pt is not yet meeting optimal nutritional needs. BG remain elevated; pt may benefit from diabetic therapeutic diet. Pt is not appropriate for nutrition education. Current Diet Order/Nutrition Support Soft (low fiber/bland), finely chopped Patient/Significant Other Able To Verbalize Education Provided Indicated Pertinent Medications Reviewed Pertinent Labs Reviewed -- BG 277 H, POC BG 268 H Height (Feet) 5 feet Height (Inches) 8.00 inches Weight (Pounds) 243 pounds (admission) Weight (Calculated Kilograms) 110.025184 kilograms Patient Weight 110.223 kg Body Mass Index 36.94 kg/m2 Usual Weight 240 lbs %UBW 101 %IBW 158 [place]/Adjusted Body Weight IBW: 154 lb (70 kg); Adjusted IBW (obesity class II): 176 lb (80 kg) Recent Weight Change No - Pt's wt fluctuates between 240-245 lb Weight Status Obese Gastrointestinal Symptoms None Last BM Oct 14, 2016 Difficulty With: Swallowing Food Allergies No Usual Diet At Home Mechanical Soft, NANCY, CCHO diet (per [place] [facility] chart) Skin Integrity Comment: Nelson score: 13. No skin issues noted. Current % PO 50% average PO intakes x5 meals Estimated Energy Expenditure (kcals/day) 6060-7407 (BEE x 1-1.5 for sepsis) Estimated Protein Required (g/day) 105-140 gm/day (1.5-2 gm/kg IBW for sepsis) Estimated Fluid Required (l/day) Per MD for CHF Problem/Etiology/Signs/Symptoms Inadequate oral intakes related to lack of complete nutrition support as evidenced by NPO status per MD and previous clear liquid diet with PO intake of 10% x1 meal. *PO diet implemented; oral intakes improving Expected Outcomes/Goals 1. Advancement of oral diet with goal of meeting at least 50% of estimated needs with acceptable tolerance 2. Labs trending within normal limits 3. Weight maintenance 4. Improved skin integrity 5. Maintain normal GI function Dietitian Recommendations * Recommend CCHO, soft (low fiber/bland), finely chopped diet * Consider diabetic oral supplement if PO intakes do not improve Follow Up Moderate Risk: F/U in 3-5 days
--- NOTE | 2016-10-15 16:06 | NUR ---
PATIENT RESTING: Patient resting quietly. No acute distress noted. Vital signs within normal range.
[2016-10-15 16:34] VITALS: BP 129/80; PULSE 67; RESP 19; TEMP 98.3; O2SAT 93
[2016-10-15] MEDS: AZITHROMYCIN 500 MG in NS 250 ML IV SCH (16:36)
--- NOTE | 2016-10-15 16:46 | NUR ---
PRICE PLANNING Discussed w Dr Roman in ns station plan for LTAC eval. States discussed w pt but that concerned about some of his belongings @ [facility], would agree only if they would take requested belongings. price Reyna mission planner called [facility] & stated they would take his belongings requested. Spoke w pt @ bedside & explained LTAC. Informed different choices: [facility], [facility], [facility], [facility], & [facility]. Informed that [facility] was called & that they agreed to take his belongings to [facility] if accepted. States that agreeable w [facility]. States the belongings he wants is his leg brace that he needs for physical therapy, his white [employer] shoes, & his personal bag that has his wallet, eyeglasses, etc. in it. Informed Maribell.
--- NOTE | 2016-10-15 18:11 | NUR ---
CLOSING NOTE: All needs met. No change in assessment. Will endorse to NOC shift nurse.
--- NOTE | 2016-10-15 19:50 | NUR ---
PM SHIFT ASSESSMENT Received patient in bed, aox3, vital signs stable. Patient on Oxymizer 10liters. No sob noted, IV line to right forearm intact and patent, no signs of infiltration noted, patient repositioned and turned and repositioned with pillow support, fall and isolation precautions in place, patient oriented to use call light for nurse assistance, call light within reach, will continue to monitor.
[2016-10-15 20:01] VITALS: BP 147/76; PULSE 60; RESP 20; TEMP 98.1; O2SAT 94
[2016-10-15] MEDS: ATORVASTATIN 10 MG TABLET PO SCH (20:58)
[2016-10-15] MEDS: DONEPEZIL HCL 5 MG TABLET (ARICEPT) PO SCH (20:59)
--- NOTE | 2016-10-15 21:30 | NUR ---
RN ROUNDS Patient awake, due medications administered, aspiration precautions maintained, blood sugar check this pm 201, covered with novolog sliding scale per md order. Call light remains within reach, safety and isolation precautions maintained, will closely monitor.
--- NOTE | 2016-10-15 22:23 | NUR ---
RN ROUNDS Patient resting quietly in bed, bed bath and incontinence care provided, patient repositioned and turned with pillow support, call light within reach, safety measures in place, will continue to monitor.
[2016-10-16] VITALS (7 sets, daily range): BP systolic 128–146; BP diastolic 67–83; PULSE 54–64; RESP 17–20; TEMP 97.1–98.5; O2SAT 92–97
[2016-10-16] MEDS: PIPERACILLIN/TAZO 3.375/DEX-IS 50 ML IV SCH ×4 (00:29→17:05)
[2016-10-16] MEDS: IPRATROPIUM BROM 0.5 MG/2.5 ML VIAL.NEB (ATROVENT) INH SCH ×4 (00:30→19:14)
[2016-10-16] MEDS: ALBUTEROL SULFATE 0.083% 2.5 MG/3 ML VIAL.NEB INH SCH ×4 (00:30→19:14)
--- NOTE | 2016-10-16 00:30 | NUR ---
RN ROUNDS Patient resting quietly in bed, no sob noted, vitals stable. patient had a bowel movement, incontinence care provided, patient repositioned and turned with pillow support, call light remains within reach, safety measures in place, will continue to monitor.
--- NOTE | 2016-10-16 02:19 | NUR ---
RN ROUNDS Patient asleep, respirations even and unlabored, repositioned and turned with pillow support, call light remains within reach, safety measures in place, will continue to monitor.
--- NOTE | 2016-10-16 04:26 | NUR ---
RN ROUNDS Patient awake, no sob noted, denies any pain or discomfort, vital signs stable. Repositioned and turned with pillow support, call light remains within reach, safety measures in place, will continue to monitor.
[2016-10-16] MEDS: INSULIN ASPART 100 UNITS/ML, 10 ML VIAL (NovoLOG) SUBCUT PRN ×3 (06:10→17:10)
--- NOTE | 2016-10-16 06:25 | NUR ---
RN ROUNDS Patient awake, due medications administered, aspiration precautions maintained, blood sugar check this am 241, covered with novolog sliding scale per md order. Incontinence care provided, repositioned with pillow support, patient needs attended to. Call light remains within reach, safety and isolation precautions maintained, will closely monitor until report given to am nurse.
--- NOTE | 2016-10-16 07:43 | NUR ---
AM ROUNDS: No s/s of distress noted. Will continue to monitor.
[2016-10-16] MEDS: methylPREDNISolone SOD SUCC/PF 62.5 MG/ML VIAL IVP SCH (08:09)
[2016-10-16] MEDS: MORPHINE 2 MG/ML INJ. SYRINGE IVP PRN (08:09)
[2016-10-16] MEDS: LISINOPRIL 20 MG TABLET PO SCH (08:10)
[2016-10-16] MEDS: CLOPIDOGREL BISULFATE 75 MG TABLET PO SCH (08:10)
[2016-10-16] MEDS: FUROSEMIDE 20 MG/2 ML VIAL IVP SCH (08:10)
[2016-10-16] MEDS: hydrALAZINE HCL 25 MG TABLET PO SCH ×3 (08:10→17:04)
[2016-10-16] MEDS: FLUoxetine HCL 20 MG CAPSULE (PROzac) PO SCH (08:10)
[2016-10-16] MEDS: ASPIRIN 81 MG TABLET(ECOTRIN) PO SCH (08:11)
[2016-10-16] MEDS: LACTOBACILLUS RHAMNOSUS GG 1 CAP CAPSULE PO SCH (08:11)
[2016-10-16] MEDS: METOPROLOL TARTRATE 25 MG TABLET PO SCH (08:11)
[2016-10-16] MEDS: PANTOPRAZOLE SODIUM 40 MG TAB PO SCH (08:12)
[2016-10-16] MEDS: DOCUSATE SODIUM 100 MG CAPSULE PO SCH (08:36)
[2016-10-16] MEDS: MUPIROCIN 2% TOPICAL OINTMENT 22 GM TP SCH (08:39)
--- NOTE | 2016-10-16 09:02 | NUR ---
DISCHARGE PLANNING Received call from [facility] patient accepted [facility]. Bed assignment will be requested upon discharge order. VANDANA Grande made aware. Ordered Radiology CD. Placed transportation packet with CD in nurses station. Any ambulance can be arranged. Addendum: 10/16/16 at 1244 by Maribell Toussaint DP DC order to [facility]. Called [facility] who will return call with bed assignment. Spoke with Dao at [facility] who will take requested items to [facility] for patient discharge. Addendum: 10/16/16 at 1414 by Maribell Toussaint DP Patient assigned to room 206A at [facility] VANDANA to report [phone] bed available after 7pm. VANDANA Grande made aware. Called [facility] ambulance [phone] arranged [facility] ([employer]Agency Sales Representative) transport pharmacy picking tech 7pm.
--- NOTE | 2016-10-16 10:00 | NUR ---
PATIENT RESTING: Patient resting quietly. No acute distress noted. Vital signs within normal range.
--- NOTE | 2016-10-16 12:01 | NUR ---
PATIENT RESTING: Patient resting quietly. No acute distress noted. Vital signs within normal range.
--- NOTE | 2016-10-16 14:30 | NUR ---
PATIENT RESTING: Patient resting quietly. No acute distress noted. Vital signs within normal range.
--- NOTE | 2016-10-16 15:45 | NUR ---
PHYSICAL THERAPY CO-SIGN The Physical Therapy Progress Notes documented by Artificial Breeding Distributor have been reviewed. Reviewed/Co-Signed by: Veronica Ruvalcaba,PT Documentation Done by: Berry Sharma PTA I concur with the documentation of this PIPE BOWL PAINT TRIMMER. Plan: continue PT as per plan of care. Addendum: 10/16/16 at 1549 by Veronica Ruvalcaba PT Amended: Links added.
--- NOTE | 2016-10-16 16:03 | NUR ---
Social Service Note: WELDER RAILCAR MECHANIC met with pt at bedside; pt asking about his dc plan and where he is going. WELDER RAILCAR MECHANIC spoke with pt about his plan; pt has orders to DC to [facility] today. Pt's hindu friend present and Ifrah. Ifrah states that she is Babak's mother and wants to be kept updated; WELDER RAILCAR MECHANIC alerted her that pt would be discharged today. Pt continued to ask if he would be sent back to [facility]. WELDER RAILCAR MECHANIC alerted pt that first he would be going to [facility] and then pt could return to [facility]. Pt needed frequent reminding of current plans for his discharge; emotional support provided. WELDER RAILCAR MECHANIC will remain available for support and will follow up as needed.
--- NOTE | 2016-10-16 16:17 | NUR ---
PATIENT RESTING: Patient resting quietly. No acute distress noted. Vital signs within normal range.
--- NOTE | 2016-10-16 16:46 | NUR ---
COMMUNICATION: Spoke with Madelaine at [facility]. She states Rhoda will call back to receive report.
--- NOTE | 2016-10-16 18:18 | NUR ---
CLOSING NOTE: All needs met. Patient to be transferred to [facility] room 206A. Pickup by [facility] at 1900. Will endorse to [facility] shift nurse.
--- NOTE | 2016-10-16 19:30 | NUR ---
PM ASSESSMENT Received patient in bed, aox3, no sob noted, removed IV line to right forearm, infiltrated, covered with gauze, no active bleeding noted. Patient will be transferring to [facility] shortly.
--- NOTE | 2016-10-16 20:00 | NUR ---
TRANSFER Patient in stable condition, vitals stable. Denies any pain or discomfort. All belongings and paperworks sent with patient and medic personnel.
[2016-10-16] MEDS ORDERED: methylPREDNISolone SOD SUCC 40 MG/ML VIAL IVP SCH (21:00)
== END 2016-10-16 19:35 | DRG 871 ==
LOC: SED 08:09 → SIC 09:08 → STU 10-13 14:40
PROVIDERS: ADMIT Internal Medicine; ATTEND Internal Medicine
PROC: 5A09357 Assistance with Respiratory Ventilation, Less than 24 Consecutive Hours, Continuous Positive Airway Pressure (ICD-10-PCS; principal; 2016-10-11)
DX: A41.9 Sepsis, unspecified organism (principal); J96.01 Acute respiratory failure with hypoxia; J69.0 Pneumonitis due to inhalation of food and vomit; J44.1 Chronic obstructive pulmonary disease with (acute) exacerbation; I69.354 Hemiplegia and hemiparesis following cerebral infarction affecting left non-dominant side; G61.0 Guillain-Barre syndrome; J44.0 Chronic obstructive pulmonary disease with (acute) lower respiratory infection; I50.9 Heart failure, unspecified; E11.9 Type 2 diabetes mellitus without complications; Z66 Do not resuscitate; M81.0 Age-related osteoporosis without current pathological fracture; F03.90 Unspecified dementia, unspecified severity, without behavioral disturbance, psychotic disturbance, mood disturbance, and anxiety; E78.5 Hyperlipidemia, unspecified; E87.6 Hypokalemia; Z96.641 Presence of right artificial hip joint; I11.0 Hypertensive heart disease with heart failure; Z22.322 Carrier or suspected carrier of Methicillin resistant Staphylococcus aureus; Z87.891 Personal history of nicotine dependence; Z79.899 Other long term (current) drug therapy
CPT/HCPCS: 36415; 36600; 71010; 80048; 80053; 81000-TC; 82803-TC; 82962; 83605; 83735-TC; 83880; 84484; 85025; 85610-TC; 85730-TC; 86738; 87040-TC; 87081; 87086; 87449; 92610-GN; 93005; 94640; 94660; 94760; 97110-GP; 97530-GP; 99285; A6209; J0456; J1815; J1940; J2060; J2270; J2543; J2930; J3480; J3490; J7030; J7040; J7050

== ENCOUNTER 2017-04-21 14:28 | Emergency (ER) | payer OTHER, MEDICAID ==
[~2017-04-21] VITALS: Ht 185.4 cm; Wt 117.9 kg
[2017-04-21 14:30] VITALS: BP_SYST 118
[2017-04-21] MEDS ORDERED: IPRATROPIUM BROM 0.5 MG/2.5 ML VIAL.NEB (ATROVENT) IH ONE (14:45)
[2017-04-21] MEDS ORDERED: ALBUTEROL SULFATE 0.083% 2.5 MG/3 ML VIAL.NEB IH ONE (14:45)
[2017-04-21] MEDS ORDERED: ALBUTEROL SULFATE 0.083% 2.5 MG/3 ML VIAL.NEB INH ONE (14:49)
[2017-04-21] MEDS ORDERED: IPRATROPIUM BROM 0.5 MG/2.5 ML VIAL.NEB (ATROVENT) INH ONE (14:49)
[2017-04-21 14:57] LABS: BASOPHILS # (AUTO) 0.1 K/uL (0.0-0.2); BASOPHILS % (AUTO) 0.9 % (0.0-2.0); EOSINOPHILS # (AUTO) 0.7 K/uL (0.0-0.4); EOSINOPHILS % (AUTO) 6.7 % (0.0-4.0); HEMATOCRIT 39.9 % (36-54); HEMOGLOBIN 13.1 g/dL (14.0-18.0); LYMPHOCYTES # (AUTO) 2.7 K/uL (1.0-5.5); LYMPHOCYTES % (AUTO) 25.2 % (20.5-51.5); MEAN CORPUSCULAR HEMOGLOBIN 29 pg (27-31); MEAN CORPUSCULAR HGB CONC 33 % (32-36); MEAN CORPUSCULAR VOLUME 89 fL (79.0-98.0); MONOCYTES # (AUTO) 0.9 K/uL (0.0-1.0); MONOCYTES % (AUTO) 8.3 % (1.7-9.3); NEUTROPHILS # (AUTO) 6.2 K/uL (1.8-7.7); NEUTROPHILS % (AUTO) 58.9 % (40.0-70.0); PLATELET COUNT (AUTO) 178 K/uL (130-430); RED BLOOD CELL COUNT(AUTO) 4.48 MIL/uL (4.2-6.2); RED CELL DISTRIBUTION WIDTH 12.9 % (9.0-15.0); WHITE BLOOD COUNT (AUTO) 10.6 K/uL (4.8-10.8)
[2017-04-21 15:03] LABS: CALCIUM 9.2 mg/dL (8.4-11.0); CREATININE 0.92 mg/dL (0.55-1.30); POTASSIUM 4.4 mmol/L (3.5-5.1)
[2017-04-21 15:08] LABS: TOTAL BILIRUBIN 0.5 mg/dL (0.0-1.0)
[2017-04-21] MEDS ORDERED: INSU100V11 SQ (15:09)
[2017-04-21] MEDS ORDERED: DULR10 RC (15:09)
[2017-04-21] MEDS ORDERED: ALBU2.5V7 INH (15:09)
[2017-04-21] MEDS ORDERED: LACTIN PO (15:09)
[2017-04-21] MEDS ORDERED: LORA-258 PO (15:09)
[2017-04-21] MEDS ORDERED: GABA-531 PO (15:09)
[2017-04-21] MEDS ORDERED: NA P118E RC (15:09)
[2017-04-21] MEDS ORDERED: ASCO500T20 PO (15:09)
[2017-04-21] MEDS ORDERED: LISI-600 PO (15:09)
[2017-04-21] MEDS ORDERED: SITA100T7 PO (15:09)
[2017-04-21] MEDS ORDERED: DOCU-144 PO (15:09)
[2017-04-21] MEDS ORDERED: ASA81 PO (15:09)
[2017-04-21] MEDS ORDERED: HYDR-1115 PO (15:09)
[2017-04-21] MEDS ORDERED: ACET325T53 PO (15:09)
[2017-04-21] MEDS ORDERED: IPRA0.2S6 INH (15:09)
[2017-04-21] MEDS ORDERED: MELA3TAB37 PO (15:09)
[2017-04-21] MEDS ORDERED: ARTT OP (15:09)
[2017-04-21] MEDS ORDERED: METO25TA6 PO (15:09)
[2017-04-21] MEDS ORDERED: LIP10 PO (15:09)
[2017-04-21] MEDS ORDERED: ZOLP10TA2 PO (15:09)
[2017-04-21] MEDS ORDERED: DONE10TA44 PO (15:09)
[2017-04-21 16:58] VITALS: BP_SYST 139
== END 2017-04-21 16:58 | disposition home or self-care (01) ==
LOC: SED 14:28
DX: J40 Bronchitis, not specified as acute or chronic (principal); G81.94 Hemiplegia, unspecified affecting left nondominant side; E11.9 Type 2 diabetes mellitus without complications; I10 Essential (primary) hypertension
CPT/HCPCS: 36415; 71010; 80053; 83880; 84484; 85025; 87081; 93005; 94640; 99285

== ENCOUNTER 2019-04-22 18:48 | Inpatient (IN) | payer OTHER, MEDICAID ==
[~2019-04-22] VITALS: Ht 172.7 cm; Wt 89.4 kg
[2019-04-22 18:48] VITALS: BP_SYST 104
[~2019-04-22 18:48] MED LIST: ACET325T53 PO; ARTT OP; ASA81 PO; ASCO500T20 PO; CARB-60 PO; CLOP75TA2 PO; CRAN450C PO; DIVA250T34 PO; DOCU-144 PO; DONE10TA44 PO; DULR10 RC; GABA-531 PO; HYDR-4038 PO; INSU100V11 SQ; IPRA3AMP9 INH; LACTIN PO; LINA5TAB2 PO; LIP10 PO; LISI-600 PO; LORA-258 PO; MELA3TAB64 PO; MEMA10TA PO; METO25TA6 PO; MOM PO; MULT-1117 PO; NA P118E RC; PRED10TA PO; PRO40 PO; ZOLP10TA2 PO
[2019-04-22 19:31] LABS: BASOPHILS # (AUTO) 0.1 K/uL (0.0-0.2); BASOPHILS % (AUTO) 1.4 % (0.0-2.0); EOSINOPHILS # (AUTO) 0.2 K/uL (0.0-0.4); EOSINOPHILS % (AUTO) 1.8 % (0.0-4.0); HEMOGLOBIN 14.1 g/dL (14.0-18.0); LYMPHOCYTES # (AUTO) 2.9 K/uL (1.0-5.5); LYMPHOCYTES % (AUTO) 28.3 % (20.5-51.5); MEAN CORPUSCULAR HEMOGLOBIN 29 pg (27-31); MEAN CORPUSCULAR HGB CONC 33 % (32-36); MEAN CORPUSCULAR VOLUME 88 fL (79.0-98.0); MONOCYTES # (AUTO) 1.2 K/uL (0.0-1.0); MONOCYTES % (AUTO) 11.6 % (1.7-9.3); NEUTROPHILS # (AUTO) 5.8 K/uL (1.8-7.7); NEUTROPHILS % (AUTO) 56.9 % (40.0-70.0); PLATELET COUNT (AUTO) 202 K/uL (130-430); RED BLOOD CELL COUNT(AUTO) 4.89 MIL/uL (4.2-6.2); RED CELL DISTRIBUTION WIDTH 15.9 % (9.0-15.0); WHITE BLOOD COUNT (AUTO) 10.2 K/uL (4.8-10.8)
[2019-04-22 19:43] LABS: CALCIUM 8.1 mg/dL (8.4-11.0); CREATININE 0.62 mg/dL (0.55-1.30); POTASSIUM 3.9 mmol/L (3.5-5.1)
[2019-04-22 19:58] LABS: ALBUMIN 2.1 g/dL (3.4-4.8); TOTAL BILIRUBIN 0.5 mg/dL (0.0-1.0)
[2019-04-22 20:36] LABS: VALPROIC ACID 25 ug/mL (50-100)
[2019-04-22 20:44] LABS: THYROID STIMULATING HORMONE 2.62 uIu/mL (0.36-3.74)
[2019-04-22 20:46] LABS: ALCOHOL, BLOOD < 3 mg/dL (<10)
[2019-04-22] MEDS ORDERED: MAGNESIUM SULFATE 1 GM/2 ML VIAL IV ONE (21:15)
[2019-04-22] MEDS ORDERED: KETAMINE 30 MG/3 ML SYRINGE IVP ONE (22:00)
[2019-04-22] MEDS ORDERED: LORazepam 2 MG/ML VIAL IVP PRN (22:30)
[2019-04-22] MEDS ORDERED: POTA10TA15 PO (22:32)
[2019-04-22] MEDS ORDERED: APIX5TAB4 PO (22:32)
[2019-04-22] MEDS ORDERED: FURO-149 PO (22:32)
[2019-04-22] MEDS ORDERED: LIP40 PO (22:32)
[2019-04-22] MEDS ORDERED: MAGN400T10 PO (22:32)
[2019-04-22] MEDS ORDERED: DEXT30DR6 EACH EYE ×2 (22:32)
[2019-04-22 23:39] VITALS: BP_SYST 98
[2019-04-22] MEDS ORDERED: INSULIN LISPRO SLIDING SCALE 100 UNITS/ML VIAL (humaLOG) SUBCUT PRN (23:45)
[2019-04-23] VITALS: BP_SYST 99
[2019-04-23] MEDS: IPRATROPIUM/ALBUTEROL SULFATE 3 ML AMPUL.NEB (DUONEB) INH SCH ×3 (01:44→13:42)
[2019-04-23 01:47] VITALS: BP_SYST 98
[2019-04-23 08:05] VITALS: BP_SYST 92
[2019-04-23 12:56] VITALS: BP_SYST 113
[2019-04-23] MEDS ORDERED: PANTOPRAZOLE SODIUM 40 MG TAB PO ONE (14:00)
[2019-04-23] MEDS ORDERED: DEXTROSE 50%-WATER 50 ML DISP.SYRIN IVP PRN (14:00)
[2019-04-23] MEDS ORDERED: D5W 1,000 ML IV PRN (14:00)
[2019-04-23] MEDS ORDERED: GLUCOSE 15 GM GEL (in 37.5 GM TUBE) PO PRN (14:00)
[2019-04-23 16:32] VITALS: BP_SYST 123
[2019-04-23] MEDS: CARBIDOPA/LEVODOPA 10/100 MG TABLET PO SCH ×2 (17:44→21:16)
[2019-04-23 20:31] VITALS: BP_SYST 127
[2019-04-23] MEDS ORDERED: ATORVASTATIN 20 MG TABLET PO SCH (21:00)
[2019-04-23] MEDS: DONEPEZIL HCL 5 MG TABLET (ARICEPT) PO SCH (21:15)
[2019-04-23] MEDS: GABAPENTIN 300 MG CAPSULE PO SCH (21:15)
[2019-04-23] MEDS: DIVALPROEX SODIUM 250 MG TABLET(DEPAKOTE) PO SCH (21:16)
[2019-04-23] MEDS: METOPROLOL TARTRATE 25 MG TABLET PO SCH (21:17)
[2019-04-23] MEDS: APIXABAN 2.5 MG TABLET PO SCH (21:18)
[2019-04-23] MEDS: MAGNESIUM OXIDE 400 MG TABLET PO SCH (21:19)
[2019-04-24] MEDS: IPRATROPIUM/ALBUTEROL SULFATE 3 ML AMPUL.NEB (DUONEB) INH SCH ×2 (06:30→15:00)
[2019-04-24 07:50] VITALS: BP_SYST 115
[2019-04-24] MEDS ORDERED: PANTOPRAZOLE SODIUM 40 MG TAB PO SCH (09:00)
[2019-04-24] MEDS: DIVALPROEX SODIUM 250 MG TABLET(DEPAKOTE) PO SCH (10:05)
[2019-04-24] MEDS: MAGNESIUM OXIDE 400 MG TABLET PO SCH (10:05)
[2019-04-24] MEDS: CARBIDOPA/LEVODOPA 10/100 MG TABLET PO SCH ×3 (10:06→17:53)
[2019-04-24] MEDS: DONEPEZIL HCL 5 MG TABLET (ARICEPT) PO SCH (10:06)
[2019-04-24] MEDS: GABAPENTIN 300 MG CAPSULE PO SCH (10:06)
[2019-04-24] MEDS: METOPROLOL TARTRATE 25 MG TABLET PO SCH (10:08)
[2019-04-24] MEDS: APIXABAN 2.5 MG TABLET PO SCH (10:12)
[2019-04-24 11:28] VITALS: BP_SYST 111
[2019-04-24 15:58] VITALS: BP_SYST 135
[2019-04-25 12:29] LABS: CHOLESTEROL 93 mg/dL (<200); HDL CHOLESTEROL 20 mg/dL (>45); LDL CHOLESTEROL 60 mg/dL (<100); TRIGLYCERIDES 56 mg/dL (30-150)
== END 2019-04-24 18:20 | DRG 308 ==
LOC: SED 18:48 → STU 22:29
PROVIDERS: ADMIT Internal Medicine; ATTEND Internal Medicine
DX: I48.2 Chronic atrial fibrillation (principal); G93.41 Metabolic encephalopathy; E43 Unspecified severe protein-calorie malnutrition; G61.0 Guillain-Barre syndrome; I69.354 Hemiplegia and hemiparesis following cerebral infarction affecting left non-dominant side; J44.1 Chronic obstructive pulmonary disease with (acute) exacerbation; I11.0 Hypertensive heart disease with heart failure; E11.40 Type 2 diabetes mellitus with diabetic neuropathy, unspecified; E78.5 Hyperlipidemia, unspecified; F02.80 Dementia in other diseases classified elsewhere, unspecified severity, without behavioral disturbance, psychotic disturbance, mood disturbance, and anxiety; I45.81 Long QT syndrome; G20 Parkinson's disease; I50.9 Heart failure, unspecified; M81.0 Age-related osteoporosis without current pathological fracture; Z96.641 Presence of right artificial hip joint; Z74.01 Bed confinement status; Z68.30 Body mass index [BMI] 30.0-30.9, adult; Z79.899 Other long term (current) drug therapy
CPT/HCPCS: 36415; 80053; 80061; 80164-TC; 82962; 83036; 84443-TC; 85025; 87081; 93005; 94640; 94760; 96365; 96375; 99285; G0378; G0482; J2060; J3475; J7620

== ENCOUNTER → 2019-04-28 | Outpatient (CLI) | payer MEDICAID, OTHER ==
[~2019-04-28] MED LIST changes: -ACET325T53 PO; +APIX5TAB4 PO; -ARTT OP; -ASA81 PO; -ASCO500T20 PO; -CLOP75TA2 PO; +DEXT30DR6 EACH EYE; -DOCU-144 PO; -DULR10 RC; +FURO-149 PO; -HYDR-4038 PO; -IPRA3AMP9 INH; -LIP10 PO; +LIP40 PO; -LISI-600 PO; -LORA-258 PO; +MAGN400T10 PO; -MELA3TAB64 PO; -MOM PO; -NA P118E RC; +POTA10TA15 PO; -PRED10TA PO; -ZOLP10TA2 PO
== END | disposition home or self-care (01) ==
LOC: SLB 20:31
PROVIDERS: ATTEND Psychiatry & Neurology Psychiatry
DX: Z00.00 Encounter for general adult medical examination without abnormal findings (principal)
CPT/HCPCS: 87230-TC

== ENCOUNTER 2019-05-02 15:10 | Outpatient (CLI) | payer OTHER | END 2019-05-03 18:26 | disposition home or self-care (01) | LOC: SLB 15:10 | PROVIDERS: ATTEND Psychiatry & Neurology Psychiatry | DX: Z00.00 Encounter for general adult medical examination without abnormal findings (principal) | CPT/HCPCS: 36415; 80164-TC ==

== ENCOUNTER 2019-05-08 14:30 | Outpatient (CLI) | payer OTHER | END 2019-05-08 21:05 | disposition home or self-care (01) | LOC: SLB 14:30 | PROVIDERS: ATTEND Psychiatry & Neurology Psychiatry | DX: Z00.00 Encounter for general adult medical examination without abnormal findings (principal) | CPT/HCPCS: 36415; 80164-TC ==